=== PATIENT | male | born 1970 | race Two or more races ===

== ENCOUNTER → 2017-06-30 | Outpatient (CLI) | payer OTHER ==
--- NOTE | 2017-06-30 13:27 | RAD ---
Chest, 2 views, 06/30/2017: History: T be exposure The heart size is normal. No pulmonary infiltrates are seen. There is no evidence of pleural fluid. Minimal spurring is present in the spine. IMPRESSION: No acute cardiopulmonary abnormality is detected.
== END | disposition home or self-care (01) ==
LOC: RAD 12:53
PROVIDERS: ATTEND Family Medicine
DX: Z20.1 Contact with and (suspected) exposure to tuberculosis (principal); M46.00 Spinal enthesopathy, site unspecified
CPT/HCPCS: 71046